=== PATIENT | female | born 1980 | race Asian ===

== ENCOUNTER 2018-07-21 14:35 | Emergency (ER) | payer OTHER ==
[~2018-07-21] VITALS: Ht 160 cm; Wt 49.6 kg
[2018-07-21 15:00] VITALS: BP 123/81
--- NOTE | 2018-07-21 15:03 | NUR ---
PATIENT AMBULATED TO BED 12.
--- NOTE | 2018-07-21 15:14 | NUR ---
PATIENT PRESENTS TO ED WITH C/O LT EARACHE X3 DAYS. REDNESS AND YELLOW DRAINAGE NOTED. DENIES N/V. PT DENIES ANY FEVER, PATIENT STATES PAIN OF 8/10 AT THIS TIME; VSS; PATIENT POSITIONED FOR COMFORT. ER MD TO EVALUATE PT.
[2018-07-21 15:59] VITALS: BP 123/81
--- NOTE | 2018-07-21 15:59 | NUR ---
Patient discharged with v/s stable. Written and verbal after care instructions given and explained. Patient alert, oriented and verbalized understanding of instructions. Ambulatory with steady gait. All questions addressed prior to discharge. ID band removed. Patient advised to follow up with PMD. Rx of Naprosyn, ciprodex otic susp., Augmentin given. Patient educated on indication of medication including possible reaction and side effects. Opportunity to ask questions provided and answered.
== END 2018-07-21 15:59 | disposition home or self-care (01) ==
LOC: MED 14:35
DX: H60.92 Unspecified otitis externa, left ear (principal)
CPT/HCPCS: 99283